=== PATIENT | male | born 1950 | race Caucasian/White ===

== ENCOUNTER → 2023-03-08 | Outpatient (CLI) | payer MEDICARE, SELFPAY ==
[2023-03-08 13:31] LABS: Absolute Lymphocyte Count 1.05 X10^3/uL (0.83-4.51); Absolute Neutrophil Count 3.8 X10^3/uL (2.0-7.7); Basophil# 0.03 X10^3/uL; Basophil% 0.5 % (0-1); Eosinophil# 0.12 X10^3/uL; Eosinophils% 2.1 % (0-5); Hematocrit 42.3 % (40-54); Hemoglobin 14.8 g/dL (13.0-16.5); Lymphocyte # 1.05 X10^3/ul (0.83-4.51); Lymphocyte % 18.7 % (19-41); Mean Corpuscular Hgb 32.5 pg (27.0-32.0); Mean Corpuscular Volume 92.8 fL (80-94); Mean Platelet Vol. 10.8 fl (6.2-12.0); Monocyte# 0.57 X10^3/uL; Monocyte% 10.2 % (0-10); NRBC Flagged by Analyzer 0 % (0-5); Neutrophil # 3.81 X10^3/uL (2.7-7.7); Platelet Count 236 K/mm3 (150-450); RBC Distribution Width CV 13.3 % (11.6-14.6); RBC Distribution Width SD 45.6 fl (35.1-43.9); Red Blood Count 4.56 M/mm3 (4.6-6.2); White Blood Count 5.6 K/mm3 (4.4-11.0)
[2023-03-08 13:33] LABS: Erythrocyte Sedimentation Rate 12 mm/hr (0-20)
[2023-03-08 13:41] LABS: Hemoglobin A1c 5.3 % (3.8-5.6)
[2023-03-08 13:45] LABS: Homocysteine 6.7 umol/L (3.2-10.7)
[2023-03-08 13:46] LABS: ALB/GLOB Ratio 0.9 RATIO (0.9-2.4); AST(SGOT) 17 U/L (15-37); Alanine Aminotransfer ALT/SGPT 31 U/L (16-61); Albumin, Serum 3.6 g/dL (3.2-5.0); Alkaline Phosphatase 75 U/L (45-117); Anion Gap 4 (5-15); BUN 19 mg/dL (7-18); BUN/Creat Ratio 20.4 RATIO (10-20); CRP < 2.90 mg/L (0.0-3.0); Calcium,Total 9.4 mg/dL (8.5-10.1); Chloride 108 mmol/L (98-107); Cholesterol 146 mg/dL (200); Creatinine, Serum 0.93 mg/dL (0.70-1.30); EST Glomerular Filtration Rate 85 mL/min (>60); Est Glom Filt Rate - Afr Amer 102 mL/min (>60); Ferritin 246 ng/mL (26-388); Globulin 3.8 g/dL (2.2-4.2); Glucose 85 mg/dL (74-106); High Density Lipoprotein 60 mg/dL; Iron 107 ug/dL (65-175); Magnesium 2.1 mg/dL (1.6-2.6); Potassium 4.2 mmol/L (3.5-5.1); Protein, Total 7.4 g/dL (6.4-8.2); Sodium Level 141 mmol/L (136-145); T4 Free Direct 1.01 ng/dL (0.76-1.46); Thyroid Stim Hormone (TSH) 0.92 uIU/mL (0.358-3.74); Triglycerides 151 mg/dL; Very Low Density Lipoprotein 30 mg/dL (5-40)
[2023-03-11 09:02] LABS: Vitamin B12 480 pg/mL (211-911); Vitamin D,25 Hydroxy 97.4 ng/mL
== END | disposition home or self-care (01) ==
PROVIDERS: PCP Nurse Practitioner Family; Referring Provider Nurse Practitioner Family; Visit Provider Nurse Practitioner Family
DX: R61 Generalized hyperhidrosis (principal); I83.028 Varicose veins of left lower extremity with ulcer other part of lower leg; R53.82 Chronic fatigue, unspecified; R06.02 Shortness of breath; R21 Rash and other nonspecific skin eruption; G90.09 Other idiopathic peripheral autonomic neuropathy; R60.9 Edema, unspecified; I49.3 Ventricular premature depolarization; H02.60 Xanthelasma of unspecified eye, unspecified eyelid
CPT/HCPCS: 80053; 80061; 82306; 82607; 82728; 83036; 83090; 83540; 83735; 84439; 84443; 85025; 85652; 86140

== ENCOUNTER → 2023-12-24 | Outpatient (CLI) | payer MEDICARE, SELFPAY ==
[2023-12-24 12:46] LABS: Absolute Lymphocyte Count 0.91 X10^3/uL (0.83-4.51); Absolute Neutrophil Count 4.4 X10^3/uL (2.0-7.7); Basophil# 0.05 X10^3/uL; Basophil% 0.8 % (0-1); Eosinophil# 0.15 X10^3/uL; Eosinophils% 2.4 % (0-5); Hematocrit 44.6 % (40-54); Hemoglobin 14.6 g/dL (13.0-16.5); Lymphocyte # 0.91 X10^3/ul (0.83-4.51); Lymphocyte % 14.7 % (19-41); Mean Corp Hgb Conc 32.7 g/dL (32-36); Mean Corpuscular Hgb 32.2 pg (27.0-32.0); Mean Corpuscular Volume 98.2 fL (80-94); Mean Platelet Vol. 11.8 fl (6.2-12.0); Monocyte# 0.65 X10^3/uL; Monocyte% 10.5 % (0-10); NRBC Flagged by Analyzer 0 % (0-5); Neutrophil # 4.37 X10^3/uL (2.7-7.7); Neutrophil % 70.6 % (47-70); Platelet Count 224 K/mm3 (150-450); RBC Distribution Width CV 13.5 % (11.6-14.6); RBC Distribution Width SD 48.8 fl (35.1-43.9); Red Blood Count 4.54 M/mm3 (4.6-6.2); White Blood Count 6.2 K/mm3 (4.4-11.0)
[2023-12-24 13:21] LABS: ALB/GLOB Ratio 1.2 RATIO (0.9-2.4); AST(SGOT) 25 U/L (15-37); Alanine Aminotransfer ALT/SGPT 43 U/L (16-61); Alkaline Phosphatase 79 U/L (45-117); Anion Gap 8 (5-15); BUN 26 mg/dL (7-18); Calcium,Total 9.5 mg/dL (8.5-10.1); Chloride 107 mmol/L (98-107); Creatinine, Serum 1.37 mg/dL (0.70-1.30); EST Glomerular Filtration Rate 54 mL/min (>60); Est Glom Filt Rate - Afr Amer 66 mL/min (>60); Globulin 3.2 g/dL (2.2-4.2); Glucose 97 mg/dL (74-106); Potassium 4.6 mmol/L (3.5-5.1); Protein, Total 7.2 g/dL (6.4-8.2); Sodium Level 142 mmol/L (136-145)
[2023-12-26 15:08] LABS: G6PD Quant Test 294 (127-427); Red Blood Cell Count Test/G6PD 4.55 x10E6/uL (4.14-5.80)
== END | disposition home or self-care (01) ==
LOC: LABSPEC 12:11
PROVIDERS: PCP Nurse Practitioner Family; Referring Provider Nurse Practitioner Family; Visit Provider Nurse Practitioner Family
DX: B60.00 Babesiosis, unspecified (principal); A79.9 Rickettsiosis, unspecified; G90.09 Other idiopathic peripheral autonomic neuropathy; R53.82 Chronic fatigue, unspecified; R06.02 Shortness of breath; R60.9 Edema, unspecified
CPT/HCPCS: 80053; 82955; 85025

== ENCOUNTER 2024-03-03 11:10 | Outpatient (CLI) | payer MEDICARE, SELFPAY ==
[2024-03-03 12:49] LABS: AST(SGOT) 22 U/L (15-37); Alanine Aminotransfer ALT/SGPT 35 U/L (16-61); Albumin, Serum 3.8 g/dL (3.2-5.0); Alkaline Phosphatase 79 U/L (45-117); Anion Gap 3 (5-15); BUN 20 mg/dL (7-18); BUN/Creat Ratio 22.9 RATIO (10-20); CRP, High Sensitivity Cardiac 2.27 mg/L; Calcium,Total 9.3 mg/dL (8.5-10.1); Chloride 106 mmol/L (98-107); Cholesterol 182 mg/dL (200); Creatinine, Serum 0.87 mg/dL (0.70-1.30); EST Glomerular Filtration Rate 91 mL/min (>60); Est Glom Filt Rate - Afr Amer 110 mL/min (>60); Glucose 104 mg/dL (74-106); High Density Lipoprotein 63 mg/dL; Potassium 4.8 mmol/L (3.5-5.1); Protein, Total 7.8 g/dL (6.4-8.2); Sodium Level 137 mmol/L (136-145); Triglycerides 124 mg/dL; Very Low Density Lipoprotein 25 mg/dL (5-40)
[2024-03-03 13:14] LABS: Hemoglobin A1c 4.9 % (3.8-5.6)
== END 2024-03-03 23:59 | disposition home or self-care (01) ==
PROVIDERS: PCP Nurse Practitioner Family; Visit Provider Nurse Practitioner Family
DX: R53.82 Chronic fatigue, unspecified (principal); N18.30 Chronic kidney disease, stage 3 unspecified; R60.9 Edema, unspecified
CPT/HCPCS: 36415; 80053; 80061; 83036; 83090; 86141

== ENCOUNTER → 2025-02-08 16:00 | Outpatient (REF) | payer MEDICARE, SELFPAY ==
[2025-02-09 14:50] LABS: Absolute Lymphocyte Count 0.87 X10^3/uL (0.83-4.51); Absolute Neutrophil Count 4.7 X10^3/uL (2.0-7.7); Basophil# 0.03 X10^3/uL; Basophil% 0.5 % (0-1); Eosinophil# 0.24 X10^3/uL; Eosinophils% 3.7 % (0-5); Hematocrit 43.5 % (40-54); Hemoglobin 14.5 g/dL (13.0-16.5); Lymphocyte # 0.87 X10^3/ul (0.83-4.51); Lymphocyte % 13.3 % (19-41); Mean Corp Hgb Conc 33.3 g/dL (32-36); Mean Corpuscular Hgb 32.4 pg (27.0-32.0); Mean Corpuscular Volume 97.1 fL (80-94); Mean Platelet Vol. 11.2 fl (6.2-12.0); Monocyte# 0.69 X10^3/uL; Monocyte% 10.6 % (0-10); NRBC Flagged by Analyzer 0 % (0-5); Neutrophil # 4.65 X10^3/uL (2.7-7.7); Neutrophil % 71.1 % (47-70); Platelet Count 209 K/mm3 (150-450); RBC Distribution Width CV 13.4 % (11.6-14.6); Red Blood Count 4.48 M/mm3 (4.6-6.2); White Blood Count 6.5 K/mm3 (4.4-11.0)
[2025-02-09 16:29] LABS: ALB/GLOB Ratio 1.7 RATIO (0.9-2.4); AST(SGOT) 27 U/L (<=37); Alanine Aminotransfer ALT/SGPT 32 U/L (<=46); Albumin, Serum 4.4 g/dL (3.4-4.8); Alkaline Phosphatase 84 U/L (40-129); Anion Gap 12 (5-15); BUN 21 mg/dL (4-19); BUN/Creat Ratio 19.7 RATIO (10-20); Calcium,Total 9.7 mg/dL (7.6-11.0); Carbon Dioxide 25.2 mmol/L (21.0-32.0); Chloride 104 mmol/L (98-108); Creatinine, Serum 1.05 mg/dL (0.70-1.20); EST Glomerular Filtration Rate 74 (>60); Estradiol 33.2 pg/mL; Globulin 2.5 g/dL (2.2-4.2); Glucose 93 mg/dL (70-99); Potassium 4.7 mmol/L (3.3-5.1); Protein, Total 6.9 g/dL (5.9-8.4); Sodium Level 140 mmol/L (133-145)
[2025-02-09 17:26] LABS: Uric Acid 7.2 mg/dL (3.5-7.2)
[2025-02-11 08:08] LABS: DHEA Sulfate 67.1 ug/dL (30.9-295.6); PROGESTERONE <0.1 ng/mL (0.0-0.5)
== END ==
LOC: LABSPEC 16:00
PROVIDERS: PCP Nurse Practitioner Family; Referring Provider Nurse Practitioner Family; Visit Provider Nurse Practitioner Family
DX: G90.09 Other idiopathic peripheral autonomic neuropathy (principal); R53.82 Chronic fatigue, unspecified; R06.02 Shortness of breath; R60.9 Edema, unspecified; N18.30 Chronic kidney disease, stage 3 unspecified; M10.4 Other secondary gout
CPT/HCPCS: 80053; 82627; 82670; 84144; 84403; 84550; 85025; 82626